=== PATIENT | male | born 1970 ===

== ENCOUNTER 2022-02-11 11:41 | Inpatient (IN) | payer OTHER ==
[2022-02-19] MEDS ORDERED: HYOSCYAMINE0.125 M1 SL (12:51)
[2022-02-19] MEDS ORDERED: PERCOCET 5-3251 EACH PO (12:52)
[2022-02-19] MEDS ORDERED: INTESTINEX680 M1 PO (12:52)
== END 2022-02-19 15:02 | disposition home or self-care (01) | DRG 330 ==
LOC: SURG 02-16 07:00 → O/R 02-16 07:54 → SURG 02-16 12:00 → SURH 02-16 15:18
PROVIDERS: ADMIT Surgery; ATTEND Surgery
PROC: 0DBP4ZZ Excision of Rectum, Percutaneous Endoscopic Approach (ICD-10-PCS; 2022-02-16)
PROC: 0DJD8ZZ Inspection of Lower Intestinal Tract, Via Natural or Artificial Opening Endoscopic (ICD-10-PCS; 2022-02-16)
PROC: 0DTN4ZZ Resection of Sigmoid Colon, Percutaneous Endoscopic Approach (ICD-10-PCS; principal; 2022-02-16 07:00)
PROC: 4A12X4Z Monitoring of Cardiac Electrical Activity, External Approach (ICD-10-PCS; 2022-02-17)
DX: K57.32 Diverticulitis of large intestine without perforation or abscess without bleeding (principal); K92.1 Melena; I10 Essential (primary) hypertension; G47.30 Sleep apnea, unspecified; Z20.822 Contact with and (suspected) exposure to COVID-19